=== PATIENT | male | born 1980 | race Caucasian/White ===

== ENCOUNTER 2019-03-27 08:09 | Emergency (ER) | payer OTHER ==
[~2019-03-27] VITALS: Ht 180.3 cm; Wt 108.9 kg
[~2019-03-27 08:09] MED LIST: ACETAMINOPHEN-120 ML PO; ADVIL100 M2 PO; ALBUTEROL INH INH; ALLEGRA ALLERG180 MG PO; ATIVAN1 M1 PO; ATIVAN1 MG PO; BACTRIM DS TAB1 EACH PO; DUONEB 2.5-0.5 M3 ML INH; HYOSCYAMINE0.375 M2 PO; IBUPROFEN 800800 MG PO; KEFLEX500 MG; MIRALAX255 GM PO; MUCINEX TA600 MG/TA2 PO; PERCOCET 5-3251 EACH PO; PHENERGAN 25 MG25 M1 PO; PREDNISONE50 MG PO; VENTOLIN17 GM INH; XANAX 0.25 MG0.25 MG; XANAX 0.25 MG0.25 MG PO; ZPAK PO
[2019-03-27 08:49] LABS: ABSOLUTE EOSINOPHILS 0.1 thou/uL (0.0-0.7); ABSOLUTE LYMPHOCYTES 3.2 thou/uL (0.8-5.3); ABSOLUTE MONOCYTES 0.5 thou/uL (0.0-1.2); ABSOLUTE NEUTROPHILS 3.5 thou/uL (1.6-8.1); BASOPHILS 0.5 %; EOSINOPHILS 1.9 %; HEMATOCRIT 45.9 % (42.0-52.0); HEMOGLOBIN 15.8 gm/dL (14.0-18.0); LYMPHOCYTES 43.2 %; MCH 30.4 pg (26.0-34.0); MCHC 34.4 g/dL (28.0-37.0); MCV 88.3 fL (80.0-100.0); MONOCYTES 6.9 %; MPV 6.3 fl. (7.2-11.1); NUCLEATED RBCS 0 /100WBC; PLATELET COUNT* 217 thou/uL (150-400); POLYS 47.5 %; WBC 7.4 thou/uL (4.0-11.0)
[2019-03-27 08:58] LABS: CALCIUM 9.1 mg/dL (8.5-10.1); CREATININE 1.1 mg/dL (0.6-1.3); POTASSIUM 3.4 mmol/L (3.5-5.1)
[2019-03-27 09:09] LABS: ALBUMIN 4.1 g/dL (3.4-5.0); TOTAL BILIRUBIN 0.3 mg/dL (<0.1-1.0); TOTAL PROTEIN 7.9 g/dL (6.4-8.2)
[2019-03-27] MEDS ORDERED: ANTIVERT25 MG PO (09:19)
[2019-03-27 09:42] VITALS: BP 126/72
== END 2019-03-27 09:57 | disposition home or self-care (01) ==
LOC: M.ERS 08:09
PROVIDERS: Emergency Medicine Emergency Medical Services
DX: H81.10 Benign paroxysmal vertigo, unspecified ear (principal); F41.9 Anxiety disorder, unspecified; Z90.49 Acquired absence of other specified parts of digestive tract; Z87.891 Personal history of nicotine dependence; Z88.0 Allergy status to penicillin

== ENCOUNTER 2019-08-17 00:12 | Emergency (ER) | payer OTHER ==
[~2019-08-17] VITALS: Ht 180.3 cm; Wt 113.4 kg
[~2019-08-17 00:12] MED LIST changes: +ANTIVERT25 MG PO
[2019-08-17 00:50] LABS: ABSOLUTE EOSINOPHILS 0.2 thou/uL (0.0-0.7); ABSOLUTE LYMPHOCYTES 3.6 thou/uL (0.8-5.3); ABSOLUTE MONOCYTES 0.6 thou/uL (0.0-1.2); ABSOLUTE NEUTROPHILS 3.8 thou/uL (1.6-8.1); BASOPHILS 0.5 %; EOSINOPHILS 2.9 %; HEMATOCRIT 44.3 % (42.0-52.0); HEMOGLOBIN 15.2 gm/dL (14.0-18.0); LYMPHOCYTES 43.5 %; MCH 30.3 pg (26.0-34.0); MCHC 34.3 g/dL (28.0-37.0); MCV 88.3 fL (80.0-100.0); MONOCYTES 7.3 %; MPV 6.6 fl. (7.2-11.1); NUCLEATED RBCS 0 /100WBC; PLATELET COUNT* 269 thou/uL (150-400); POLYS 45.8 %; RBC 5.01 mil/uL (4.50-6.00); RDW-CV 13.6 % (10.5-14.5); WBC 8.4 thou/uL (4.0-11.0)
[2019-08-17 01:10] LABS: CALCIUM 9.1 mg/dL (8.5-10.1); CREATININE 1.2 mg/dL (0.6-1.3); POTASSIUM 3.8 mmol/L (3.5-5.1)
[2019-08-17 01:13] LABS: TOTAL BILIRUBIN 0.3 mg/dL (<0.1-1.0); TOTAL PROTEIN 7.8 g/dL (6.4-8.2)
[2019-08-17] MEDS ORDERED: CARAFATE 1 GM TA1 G1 PO (02:16)
[2019-08-17] MEDS ORDERED: ATIVAN1 M1 PO (02:16)
[2019-08-17 03:07] VITALS: BP 127/76
--- NOTE | 2019-08-17 10:40 | EKG ---
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 : 1980 Requested By: Brooks Adamson Order Number: [id number] MD: Sharan Villaseñor Measurements Intervals [place] Rate: 60 P: 31 [place]: 161 QRS: 25 QRSD: 96 T: 3 QT: 385 QTc: 385 Interpretive Statements Sinus rhythm Abnormal R-wave progression, early transition Compared to ECG 01/10/2017 12:29:39 No significant changes Electronically Signed On 08-17-2019 10:39:08 CDT by Sharan Villaseñor [email or web address] <ELECTRONICALLY SIGNED> By: Sharan Villaseñor MD, FAC 08/17/19 1039 0035 0035 Sharan Villaseñor MD, [facility] /EPI
== END 2019-08-17 03:07 | disposition home or self-care (01) ==
LOC: M.ERS 00:12
PROVIDERS: Emergency Medicine Emergency Medical Services
DX: R07.9 Chest pain, unspecified (principal); F41.9 Anxiety disorder, unspecified; Z90.49 Acquired absence of other specified parts of digestive tract; Z87.891 Personal history of nicotine dependence; Z88.0 Allergy status to penicillin

== ENCOUNTER 2020-05-09 21:01 | Emergency (ER) | payer OTHER ==
[~2020-05-09] VITALS: Ht 177.8 cm; Wt 117.9 kg
[~2020-05-09 21:01] MED LIST changes: +CARAFATE 1 GM TA1 G1 PO
[2020-05-09] MEDS ORDERED: XANAX 0.25 MG0.25 MG PO (22:23)
[2020-05-09 22:27] VITALS: BP 132/70
--- NOTE | 2020-05-10 13:50 | EKG ---
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 : 1980 Requested By: Jacque Headley Order Number: [id number] MD: Sharan Villaseñor Measurements Intervals [place] Rate: 69 P: 46 [place]: 147 QRS: 46 QRSD: 102 T: 9 QT: 364 QTc: 390 Interpretive Statements Sinus rhythm supraventricular premature complex Abnormal R-wave progression, early transition Compared to ECG 08/17/2019 00:35:59 supraventricular premature complex(es) now present Electronically Signed On 05-10-2020 13:49:55 GLUER by Sharan Villaseñor [email or web address] <ELECTRONICALLY SIGNED> By: Sharan Villaseñor MD, FAC 05/10/20 1349 31 31 Sharan Villaseñor MD, [facility] /EPI
== END 2020-05-09 22:28 | disposition home or self-care (01) ==
LOC: M.ERS 21:01
DX: F41.9 Anxiety disorder, unspecified (principal); F17.210 Nicotine dependence, cigarettes, uncomplicated; Z88.0 Allergy status to penicillin; Z90.49 Acquired absence of other specified parts of digestive tract

== ENCOUNTER 2020-06-21 17:26 | Emergency (ER) | payer OTHER ==
[~2020-06-21] VITALS: Ht 180.3 cm; Wt 117.9 kg
[2020-06-21] MEDS ORDERED: ACYCLOVIR5 GM PO (17:40)
[2020-06-21 18:07] LABS: ABSOLUTE EOSINOPHILS 0.3 thou/uL (0.0-0.7); ABSOLUTE MONOCYTES 0.6 thou/uL (0.0-1.2); BASOPHILS 0.4 %; HEMATOCRIT 43.4 % (42.0-52.0); HEMOGLOBIN 14.7 gm/dL (14.0-18.0); LYMPHOCYTES 37.2 %; MCH 29.8 pg (26.0-34.0); MCHC 33.8 g/dL (28.0-37.0); MONOCYTES 7.5 %; MPV 6.3 fl. (7.2-11.1); NUCLEATED RBCS 0 /100WBC; PLATELET COUNT* 248 thou/uL (150-400); POLYS 50.9 %; RBC 4.93 mil/uL (4.50-6.00); RDW-CV 13.3 % (10.5-14.5)
[2020-06-21 19:01] LABS: CALCIUM 9.7 mg/dL (8.5-10.1); CREATININE 1.1 mg/dL (0.6-1.3); POTASSIUM 4.1 mmol/L (3.5-5.1)
[2020-06-21 19:06] LABS: ALBUMIN 4.3 g/dL (3.4-5.0); TOTAL BILIRUBIN 0.2 mg/dL (<0.1-1.0); TOTAL PROTEIN 7.9 g/dL (6.4-8.2)
[2020-06-21] MEDS ORDERED: IBUPROFEN 800800 M1 PO (19:32)
[2020-06-21] MEDS ORDERED: ZANAFLEX4 MG PO (19:32)
[2020-06-21 19:41] VITALS: BP 155/78
== END 2020-06-21 19:41 | disposition home or self-care (01) ==
LOC: M.ERS 17:26
PROVIDERS: Nurse Practitioner Family
DX: M79.651 Pain in right thigh (principal); M25.561 Pain in right knee; M79.661 Pain in right lower leg; Z90.49 Acquired absence of other specified parts of digestive tract; Z88.0 Allergy status to penicillin; Z87.891 Personal history of nicotine dependence